=== PATIENT | female | born 1940 | race Caucasian/White ===

== ENCOUNTER 2019-02-04 10:58 | Emergency (ER) | payer OTHER ==
[2019-02-04 11:20] VITALS: BP 162/80; PULSE 63; TEMP 98.5; BMI 29.8
[2019-02-04 13:47] LABS: BASO % 0.4 % (0-2.0); EOS % 2.1 % (0-4.5); HEMATOCRIT 39.2 % (32.4-45.2); HEMOGLOBIN 13.2 GM/dL (10.7-15.3); LYMPH % 33.8 % (8-40); MCH 32.4 pg (25.7-33.7); MCHC 33.7 g/dl (32.0-36.0); MEAN PLT VOLUME 9.4 fl (7.5-11.1); MONO % 6.9 % (3.8-10.2); NEUT % 56.8 % (42.8-82.8); PLATELET COUNT 220 K/MM3 (134-434); RBC 4.08 M/mm3 (3.60-5.2); RDW 14.1 % (11.6-15.6); WHITE BLOOD COUNT 6.8 K/mm3 (4.0-10.0)
[2019-02-04] MEDS ORDERED: FAMOTIDINE 20 MG/50 ML IVPB 20 MG/50 ML MG IVPB ONE ×2 (13:47→14:23)
[2019-02-04] MEDS ORDERED: SODIUM CHLORIDE 0.9% 500 ML INFUS.BAG IV ONE (13:47)
--- NOTE | 2019-02-04 13:58 | PDOC ---
History of Present Illness - General Chief Complaint: Diarrhea Stated Complaint: DIARRHEA / WEAKNESS Time Seen by Provider: 02/04/19 13:11 History Source: Patient, Family Exam Limitations: No Limitations - History of Present Illness Initial Comments: 02/04/19 13:52 [id number] with h/o IBS (follows with Dr. Jain), stomach cancer (s/p resection 2 years ago now with continued dysphagia), iron deficiency anemia (on daily iron supplement), osteoarthritis, and multiple abdominal surgeries who p/w about 13 hours of watery diarrhea worse than her normal diarrhea. She does note getting fairly regular diarrhea but notes this is worse than normal and she now feels dehydrated and a bit lightheaded, and nauseated. She additionally notes mild diffuse upper abdominal pain and gas, which she notes is not out of the ordinary for her. She always has black stool because of the iron, which she has been taking regularly. She denies f/c, vomiting, constipation, chest pain, palpitations, or other new symptoms. She has chronic issues with poor PO intake because of her dysphagia following "stomach cancer surgery." Past History - Past Medical History Allergies/Adverse Reactions: Allergies Allergy/AdvReac Type Severity Reaction Status Date / Time No Known Allergies Allergy Verified 02/04/19 11:16 Home Medications: Ambulatory Orders Benazepril HCl [Lotensin] 10 mg PO DAILY 02/04/19 Iron Ps Complex/B12/Folic Acid [Poly-Iron 150 Forte Capsule] 1 each PO DAILY Nebivolol [Bystolic -] 5 mg PO DAILY 02/04/19 Sucralfate [Carafate -] 1 gm PO QID 02/04/19 Cancer: Yes (colon) COPD: No GI Disorders: Yes HTN: Yes - Surgical History Abdominal Surgery: Yes (colon ca) - Suicide/Smoking/Psychosocial Hx Smoking History: Never smoked Review of Systems - Review of Systems Able to Perform ROS?: Yes Comments:: 02/04/19 14:27 GEN: malaise,, generalized weakness, no fever, chills, or weight change HEENT: no ear pain, sore throat, vision change, or eye pain CV: lightheadedness, no chest pain, palpitations, syncope, or edema RESP: no cough, wheezing, or SOB GI: chronic abdominal pain, nausea, watery diarrhea, no vomiting, constipation, or white/bloody stool : no dysuria, hematuria, incontinence, retention, bleeding, or discharge MSK: no neck/back pain, muscle weakness/pain, or joint swelling/pain NEURO: no headache, seizure, vertigo, numbness, tingling, or focal weakness PSYCH: no substance use, no behavior change SKIN: no jaundice, no rash ROS otherwise negative except as noted in HPI *Physical Exam - Vital Signs Last Vital Signs Temp Pulse Resp BP Pulse Ox 98.5 F 63 18 162/80 98 02/04/19 11:18 02/04/19 11:18 02/04/19 11:18 02/04/19 11:18 02/04/19 11:18 - Physical Exam Comments: 02/04/19 14:29 GENERAL: a bit tired but nontoxic-appearing, A/Ox4, no distress, answers questions appropriately, daughter at bedside HEENT: PERRLA, EOMI, a bit dry mucous membranes NECK/BACK: no midline ttp, no spinal stepoff or deformity, no hematoma, full ROM , neck supple CARDIOVASCULAR: regular rate/rhythm, normal S1S2, no MGR, strong peripheral pulses, capillary refill <2 seconds, extremities wwp, no edema LUNGS/RESPIRATORY: no respiratory distress, CTAB GI/ABDOMEN: symmetric [id number], scattered well-healed laparoscopy scars, normoactive BS, soft, minimal BUQ ttp, no midline pulsatile masses, rectal with small amount watery brown stool without blood or black stool : no CVA tenderness EXTREMITIES: no muscle atrophy, no acute deformity SKIN: warm and dry, no pallor, no jaundice, no rash, no bruising, no skin breakdown, no cuts, no lesions NEUROLOGICAL: GCS 15, CN II-XII grossly intact, 5/5 strength proximally and distally, no facial droop ED Treatment Course - LABORATORY CBC & Chemistry Diagram: 02/04/19 13:08 02/04/19 13:08 Medical Decision Making - Medical Decision Making 02/04/19 14:32 Adult patient p/w diarrhea. No recent abx, travel, camping, drinking from streams, bloody/black/white stool. Initial Vital Signs Temp Pulse Resp BP Pulse Ox 98.5 F 63 18 162/80 98 02/04/19 11:18 02/04/19 11:18 02/04/19 11:18 02/04/19 11:18 02/04/19 11:18 Exam: Results as noted in Physical Exam section. DDX IBNLT: most likely normal baseline exacerbation of IBS per prior hx. Also possible diarrhea 2/2 increased secretion (infectious; MC is viral with norovirus MC cause for adults and rotavirus MC cause for pediatrics), decreased absorption, increased osmotic load (e.g. laxatives, colchicine), abnormal motility (e.g. IBS, neuropathy) W/U ordered: Labs as noted below TX ordered: IVF, Pepcid EKG: Reviewed; results as noted in ECG Review section. CT: Labs: Reassessment: Repeat VS: ADMIT The Pt is unsafe for discharge at this time. They require further hospital observation, workup, and treatment. Microblog sent to [facility] for admission.Blank Decision to Admit order is placed per ED protocol. Spoke with [facility], in agreement Pt to be admitted to Decision to Admit order placed to [facility] covering attending DISCHARGE This patient has gotten significant relief of symptoms while in the ED.On last reassessment, vitals are wnl, pain is reasonably controlled, and exam is benign.Workup is not concerning for emergency-level pathology at this time.This patient is appropriate for discharge with close outpatient follow up. They are comfortable with this plan and will follow up with their primary care provider in 1-3 days. Specific return precautions are discussed and they will come back to the ER if necessary. *DC/Admit/Observation/Transfer Diagnosis at time of Disposition: Diarrhea Qualifiers: Diarrhea type: unspecified type Qualified Code(s): R19.7 - Diarrhea, unspecified - Discharge Dispostion Disposition: HOME Condition at time of disposition: Stable Decision to Admit order: No - Referrals Referrals: Willie Brink [Primary Care Provider] - John Jain MD [Staff Physician] - - Patient Instructions Printed Discharge Instructions: DI for Diarrhea and Traveler's Diarrhea -- Adult Additional Instructions: You were seen in the ER for diarrhea. We checked your laboratories and gave you IV fluids and stomach medicine which did help. After our assessment, we do not believe you are having a medical emergency at this time, and we believe you are safe to go home. Please follow up with your GI doctor (Dr. Jain) and your primary care provider in 1-3 days. Drink plenty of fluids and avoid rich foods for 2-3 days. Please come back to the ER at any time, 24 hours a day, for any new or worsening symptoms, like worsened abdominal pain, fever, inability to have a bowel movement or pass gas, chest pain, palpitations, or other symptoms. If you are having severe or life threatening symptoms, or symptoms that make it unsafe to drive or have someone drive you, please call 911. Rojo visto en la willis de emergencias por diarrhea. Revisamos arelis laboratorios y le dimos lquidos por el parth y medicina estomacal que s ayudaron. Despus de nuestra evaluacin, no creemos que est teniendo guillermina emergencia mdica en stacie momento, y creemos que est seguro de irse a casa. Por favor, shashi un seguimiento con elena mdico GI (Dr. Jain) y elena proveedor de atencin primaria en 1-3 gan. Karena muchos lquidos y evite los alimentos ricos sierra 2-3 gan. Por favor, regrese a urgencias en cualquier momento, las 24 horas del da, para cualquier sntoma nuevo o que empeore, cait dolor abdominal empeorado, fiebre, incapacidad para tener un movimiento intestinal o pasar gas, dolor en el pecho, palpitaciones u otros sntomas. Si usted est teniendo sntomas graves o potencialmente mortales, o sntomas que hacen que no sea seguro conducir o que alguien lo conduzca, llame al 911. - Post Discharge Activity
[2019-02-04 14:18] LABS: ALBUMIN 3.5 g/dl (3.4-5.0); ALK PHOS 116 U/L (45-117); ANION GAP 3 MMOL/L (8-16); BILIRUBIN,TOTAL 0.4 mg/dL (0.2-1); BLOOD UREA NITROGEN 13.4 mg/dL (7-18); CALCIUM 9.2 mg/dL (8.5-10.1); CHLORIDE 109 mmol/L (98-107); CO2 31 mmol/L (21-32); CREATININE 0.7 mg/dL (0.55-1.3); GLUCOSE,RANDOM 82 mg/dL (74-106); POTASSIUM 4.2 mmol/L (3.5-5.1); SGOT/AST 21 U/L (15-37); SGPT/ALT 22 U/L (13-61); SODIUM 143 mmol/L (136-145); TOT PROT 6.7 g/dl (6.4-8.2)
[2019-02-04 14:41] LABS: URINE APPEARANCE CLEAR; URINE BILIRUBIN NEGATIVE (NEGATIVE); URINE COLOR YELLOW; URINE GLUCOSE (UA) NEGATIVE (NEGATIVE); URINE KETONE NEGATIVE (NEGATIVE); URINE LEUK ESTERASE NEGATIVE (NEGATIVE); URINE NITRITE NEGATIVE (NEGATIVE); URINE PROTEIN NEGATIVE (NEGATIVE); URINE UROBILINOGEN 0.2 mg/dL (0.2-1.0)
--- NOTE | 2019-02-05 14:44 | EKG ---
Test Reason : Blood Pressure : / mmHG Vent. Rate : 052 BPM Atrial Rate : 052 BPM P-R Int : 162 ms QRS Dur : 092 ms QT Int : 494 ms P-R-T Axes : 013 025 034 degrees QTc Int : 459 ms SINUS BRADYCARDIA OTHERWISE NORMAL ECG NO PREVIOUS ECGS AVAILABLE Confirmed by Henrique Siddiqui MD ([id number]) on 02/05/2019 2:43:32 PM Referred By: Confirmed By:Henrique Siddiqui MD
--- NOTE | 2019-02-05 15:33 | PDOC ---
Documentation entered by Raghavendra Sosa SCRIBE, acting as scribe for Kavya Vega MD. Kavya Vega MD: This documentation has been prepared by the Ian dye Joel, SCRIBE, under my direction and personally reviewed by me in its entirety. I confirm that the documentation accurately reflects all work, treatment, procedures, and medical decision making performed by me. Attending Attestation - Resident Resident Name: Shahrzad Candelaria - ED Attending Attestation I have performed the following: I have examined & evaluated the patient, The case was reviewed & discussed with the resident, I agree w/resident's findings & plan, Exceptions are as noted - HPI HPI: 02/04/19 14:14 The patient is a 78 year old female with a significant PMH of IBS, stomach CA (s /p resection with current dysphagia), HTN, and iron deficient anemia who presents to the emergency department for evaluation of worsening diarrhea. The patient states her diarrhea is more watery than usual since last night with associated diffuse abdominal pain, nausea, and lightheadedness. She also notes she has been feeling more dehydrated. The patient denies chest pain, shortness of breath, headache and dizziness. Denies fever, chills, vomit, constipation. Denies dysuria, frequency, urgency and hematuria. Allergies: NKA Past surgical history: None reported. Social history: No reported cigarette, alcohol, or drug use. PCP: Dr. Willie Brink GI: Dr. Jain - Physicial Exam PE: GENERAL: Awake, alert, and fully oriented, in no acute distress HEAD: No signs of trauma EYES: PERRLA, EOMI, sclera anicteric, conjunctiva clear ENT: Auricles normal inspection, hearing grossly normal, nares patent, oropharynx clear without exudates. Dry mucosa NECK: Normal ROM, supple, no lymphadenopathy, JVD, or masses LUNGS: Breath sounds equal, clear to auscultation bilaterally. No wheezes, and no crackles HEART: Regular rate and rhythm, normal S1 and S2, no murmurs, rubs or gallops ABDOMEN: Soft, nontender, normoactive bowel sounds. No guarding, no rebound. No masses EXTREMITIES: Normal range of motion, no edema. No clubbing or cyanosis. No cords, erythema, or tenderness NEUROLOGICAL: Cranial nerves II through XII grossly intact. Normal speech, normal gait. Motor and sensation intact SKIN: Warm, dry, normal turgor, no rashes or lesions noted. - Medical Decision Making No signs of acute abdomen on exam. Patient appears mildly fluid depleted. Will rehydrate and reassess. Likely DC home if labs wnl.
== END 2019-02-04 16:09 | disposition home or self-care (01) ==
LOC: JER 10:58
PROC: 3E033GC Introduction of Other Therapeutic Substance into Peripheral Vein, Percutaneous Approach (ICD-10-PCS; principal; 2019-02-04)
PROC: 3E0337Z Introduction of Electrolytic and Water Balance Substance into Peripheral Vein, Percutaneous Approach (ICD-10-PCS; 2019-02-04)
DX: R19.7 Diarrhea, unspecified (principal); K58.9 Irritable bowel syndrome, unspecified; D50.9 Iron deficiency anemia, unspecified; M19.90 Unspecified osteoarthritis, unspecified site; R13.19 Other dysphagia; Z85.028 Personal history of other malignant neoplasm of stomach
CPT/HCPCS: 36415; 80053; 81003; 82272; 83690; 84484; 85025; 87077; 87086; 93005; 93010; 96365; 99284-25

== ENCOUNTER 2021-08-07 11:39 | Emergency (ER) | payer OTHER ==
[2021-08-07 11:55] VITALS: BP 147/92; PULSE 72; TEMP 97.8; BMI 31.1
== END 2021-08-07 14:04 | disposition home or self-care (01) ==
LOC: JER 11:39
DX: J02.9 Acute pharyngitis, unspecified (principal)
CPT/HCPCS: 99283-25

== ENCOUNTER 2023-07-07 04:46 | Day surgery (SDC) | payer OTHER ==
[2023-07-05 11:32] VITALS: BMI 30.8
[2023-07-07] MEDS ORDERED: SIMETHICONE 40 MG/0.6 ML BOTTLE ONE (07:44)
[2023-07-07 08:47] VITALS: TEMP 97.8
[2023-07-07 09:18] VITALS: BP 121/73; PULSE 64; RESP 18
== END 2023-07-07 10:00 | disposition home or self-care (01) ==
LOC: JASU-ENDO 04:46
PROVIDERS: ATTEND Student in an Organized Health Care Education/Training Program
PROC: 0DB68ZX Excision of Stomach, Via Natural or Artificial Opening Endoscopic, Diagnostic (ICD-10-PCS; principal; 2023-07-07 08:30)
DX: Z81.3 Family history of other psychoactive substance abuse and dependence (principal); K29.50 Unspecified chronic gastritis without bleeding; Z98.0 Intestinal bypass and anastomosis status
CPT/HCPCS: 88305-TC; 88342-TC